=== PATIENT | male | born 1960 | race Caucasian/White ===

== ENCOUNTER → 2020-03-20 10:10 | Outpatient (CLI) | payer OTHER, SELFPAY ==
--- NOTE | 2020-03-20 10:18 | DI.RAD.S_ITS ---
PROCEDURE: XR CHEST 2V INDICATIONS: cough TECHNIQUE: 2 views of the chest were acquired. COMPARISON: None. FINDINGS: Surgical changes and devices: None. Lungs and pleura: Lungs are clear. No pleural effusions or pneumothorax. Mediastinum: Mediastinal contours are normal. Heart size is normal. Bones and chest wall: No suspicious bony abnormalities. Soft tissues appear unremarkable. IMPRESSION: No evidence acute pulmonary process. Dictated by: Yvon Armas M.D. on 03/20/2020 at 10:33 Approved by: Yvon Armas M.D. on 03/20/2020 at 10:33
== END ==
PROVIDERS: Referring Provider Physician Assistant; Visit Provider Physician Assistant
DX: R05 Cough (principal)
CPT/HCPCS: 71046

== ENCOUNTER → 2020-03-20 15:31 | Outpatient (CLI) | payer OTHER, SELFPAY ==
[2020-03-21 14:09] LABS: COVID19 Sendout Not Detected (Not Detect)
== END ==
PROVIDERS: Visit Provider Physician Assistant
DX: Z11.59 Encounter for screening for other viral diseases (principal); R05 Cough
CPT/HCPCS: 87635